=== PATIENT | male | born 1955 | race Caucasian/White ===

== ENCOUNTER 2020-01-12 01:28 | Inpatient (IN) | payer MEDICARE, OTHER ==
[~2020-01-12] VITALS: Ht 185.4 cm; Wt 108.0 kg
[2020-01-12] MEDS ORDERED: ONDANSETRON 2MG/ML, 2ML IVPush ONE (02:00)
[2020-01-12] MEDS ORDERED: SODIUM CHLORIDE FLUSH 10ML SYR IVF ONE (02:00)
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
[2020-01-12] MEDS ORDERED: ONDANSETRON 2MG/ML, 2ML ONE ×4 (02:06→16:04)
[2020-01-12] MEDS ORDERED: MORPHINE SULFATE 4 MG/ML, 1ML ONE ×6 (02:06→14:27)
--- NOTE | 2020-01-12 02:11 | NUR ---
PT TO IMAGING.
[2020-01-12] MEDS: MORPHINE SULFATE 4 MG/ML, 1ML IVPush PRN ×5 (02:31→14:41)
--- NOTE | 2020-01-12 03:13 | NUR ---
PT LAYING IN BED, CONNECTED TO BP AND O2 MONITORS. MEDICATED PER MAY, CALL LIGHT IN REACH AND LAW ENFORCEMENT IN ROOM.
[2020-01-12 03:25] LABS: ANION GAP 14 mmol/L (5-15); CALCIUM 9.3 mg/dL (8.5-10.1); CHLORIDE 110 mmol/L (98-107)
[2020-01-12 03:26] LABS: CREATININE 1.35 mg/dL (0.7-1.3)
[2020-01-12 03:28] LABS: BASOPHILS % (AUTO) 1 % (0-1); EOSINOPHILS % (AUTO) 0 % (1-7); LYMPHOCYTES % (AUTO) 9 % (22-44); MEAN CORPUSCULAR HEMOGLOBIN 31.6 pg (27.5-34.5); MEAN CORPUSCULAR HGB CONC 32.9 g/dL (33.2-36.2); MEAN PLATELET VOLUME 8.4 fL (7.4-10.4); MONOCYTES % (AUTO) 8 % (2-9); NEUTROPHILS % (AUTO) 81 % (42-75); PLATELET COUNT 227 x10^3/uL (130-400); RED BLOOD COUNT 5.38 x10^6/uL (4.38-5.82); RED CELL DISTRIBUTION WIDTH 15.2 % (9.4-14.8)
[2020-01-12] MEDS ORDERED: ONDANSETRON 2MG/ML, 2ML IVPush PRN ×2 (03:30→16:00)
[2020-01-12] MEDS ORDERED: SODIUM CHLORIDE 0.9% 1,000 ML IV SCH (03:30)
--- NOTE | 2020-01-12 03:40 | NUR ---
PT'S WOUNDS DRESSED WITH ADAPTIC.
[2020-01-12] MEDS ORDERED: HEPARIN 5,000 UNITS/ML, 1ML ONE (03:59)
[2020-01-12] MEDS: HEPARIN 5,000 UNITS/ML, 1ML SQ SCH ×3 (04:07→20:05)
[2020-01-12 04:12] LABS: MD SCAN
[2020-01-12] MEDS ORDERED: HYDROcodone/APAP 5/325 TABLET ONE (04:33)
[2020-01-12] MEDS: HYDROcodone/APAP 5/325 TABLET PO PRN ×2 (04:35→22:07)
[2020-01-12 04:37] LABS: CHOL/HDL RATIO 3.8
--- NOTE | 2020-01-12 04:39 | NUR ---
pt continuously asking for water and ice chips, reeducated about npo status, communicated understanding. pt medicated to mar for pain, nadn when pt watching tv. call light in reach.
[2020-01-12] MEDS: morphine SULFATE 10 MG/ML, 1ML IVPush PRN ×2 (04:51→20:06)
[2020-01-12] MEDS: ONDANSETRON 2MG/ML, 2ML IVPush PRN ×2 (04:51→10:35)
--- NOTE | 2020-01-12 04:57 | NUR ---
PT MEDICATED WITH MORPHINE FOR TRANSFER FROM [facility] TO HOSPITAL BED. PT REMAINS AWAKE AND GRIMICING IN PAIN. PT WORKING ON TAKING DEEP BREATHS FOR PAIN CONTROL.
--- NOTE | 2020-01-12 04:58 | NUR ---
REPORT RECIEVED FROM LIZ OTT. THIS RN TO ASSUME CARE OF PT. PT MOVED TO HOSPITAL BED, AND IS COMFORTABLE AT THE MOMENT, PT REQUESTS WATER BUT EDUCATED ON NPO STATUS, PT AGREEABLE AT THIS TIME. PT ON CONTINUOUS PULSE OX AND BP CUFF. DEPUTIES AT BEDSIDE
--- NOTE | 2020-01-12 05:35 | NUR ---
PT PROVIDED WITH EXTRA PILLOW TO HELP WITH PAIN ON INJURED LEG. PT STATING PAIN RELIEF
[2020-01-12] MEDS ORDERED: ACETAMINOPHEN 325 MG TABLET ONE ×2 (06:18→17:10)
[2020-01-12] MEDS: ACETAMINOPHEN 325 MG TABLET PO PRN (06:23)
--- NOTE | 2020-01-12 06:25 | NUR ---
PT STATING STILL IN PAIN, MEDICATED PER EMAR AND PROVIDED ICE PACK
--- NOTE | 2020-01-12 07:30 | NUR ---
REPORT TO RECIEVING RN
--- NOTE | 2020-01-12 10:00 | NUR ---
REPORT RC'VD FROM KELSEY HILL AND CARE OF PT ASSUMED.
[2020-01-12] MEDS: NICOTINE 14MG/24 HR PATCH.TD24 TD SCH (10:33)
--- NOTE | 2020-01-12 10:44 | NUR ---
PT MEDICATED FOR 10/10 L HIP PAIN AND NAUSEA/DRY HEAVING. IVF INFUSING. STILL NO SURGICAL BED AVAILABLE UPSTAIRS AND NO TIME SCHEDULED FOR SURGERY. CMS INTACT TO LLE. PT REPOSITIONED TOLERATED. OFFICERS AT BS AT ALL TIMES.
--- NOTE | 2020-01-12 11:46 | NUR ---
PT VERBALIZES SOME PAIN RELIEF AND RELIEF OF NAUSEA/DRY HEAVING AFTER MORPHINE. FRESH LARGE ICE PACK PROVIDED FOR L HIP. PT FREQUENTLY REQUESTING WATER OR ICE CHIPS BUT UNDERSTANDS NPO STATUS D/T SURGERY. URINE VERY DARK, ONLY ~200ML SINCE THIS MORNING. IVF STILL INFUSING AT 100ML/HR. CALLED HOSPITALIST DR. NOONAN TO NOTIFY HIM OF PT STATUS, HE STATES HE WILL COME SEE PT BUT NO CHANGES TO ORDERS.
[2020-01-12] MEDS ORDERED: D5%-0.45NACL+KCL 20MEQ 1,000 ML IV ONE (13:30)
--- NOTE | 2020-01-12 13:37 | NUR ---
HOSPITALIST WAS IN TO SEE PT. NEW ORDER RC'VD TO CHANGE MIVF.
--- NOTE | 2020-01-12 14:18 | NUR ---
REPORTED TO JAVIER HILL IN PRE-OP.
[2020-01-12] MEDS ORDERED: MIDAZOLAM 1 MG/ML, 2ML ONE (14:58)
[2020-01-12] MEDS ORDERED: FENTANYL PF 250 MCG/5ML ONE ×2 (14:58→15:46)
[2020-01-12] MEDS ORDERED: CHLORHEXIDINE 15 ML UDC MM ONE (15:00)
--- NOTE | 2020-01-12 15:01 | NUR ---
PT MEDICATED WITH ANOTHER DOSE OF MORPHINE FOR L HIP PAIN. NEW ICE PACK PROVIDED. TAKEN TO OR VIA [place].
[2020-01-12] MEDS ORDERED: PHENYLEPHRINE 10 MG/ML ONE (15:21)
[2020-01-12 15:26] LABS: CHLORIDE,URINE RANDOM 61 mmol/L; POTASSIUM,URINE RANDOM 120 mmol/L; SODIUM,URINE RANDOM 37 mmol/L
[2020-01-12] MEDS ORDERED: PROMETHAZINE 25 MG SUPP PR PRN (16:00)
[2020-01-12] MEDS ORDERED: LORazepam 2 MG/ML, 1ML IVPush PRN (16:00)
[2020-01-12] MEDS ORDERED: PROMETHAZINE 25 MG/ML, 1ML IVPush PRN (16:00)
[2020-01-12] MEDS ORDERED: hydrALAzine 20 MG/ML, 1ML IV PRN (16:00)
[2020-01-12] MEDS ORDERED: LABETALOL 5MG/ML, 20ML IV PRN (16:00)
[2020-01-12] MEDS ORDERED: PROMETHAZINE 12.5 MG SUPP PR PRN (16:00)
[2020-01-12] MEDS ORDERED: ACETAMINOPHEN 325 MG TABLET PO PRN (16:00)
[2020-01-12] MEDS ORDERED: HYDROmorphone 1 MG/ML, 1ML INJ IVPush PRN (16:00)
[2020-01-12] MEDS ORDERED: OXYcodone 5 MG/5 ML ORAL.SOL UDC PO PRN (16:00)
[2020-01-12] MEDS ORDERED: GLYCOPYRROLATE 0.2MG/1ML, 5ML ONE (16:04)
[2020-01-12] MEDS ORDERED: ROCURONIUM 10MG/ML,5ML ONE (16:04)
[2020-01-12] MEDS ORDERED: PROPOFOL 10 MG/ML, 20ML ONE (16:04)
[2020-01-12] MEDS ORDERED: CEFAZOLIN 1,000 MG ONE (16:04)
[2020-01-12] MEDS ORDERED: SUCCINYLCHOLINE 20 MG/ML, 10ML ONE (16:04)
[2020-01-12] MEDS ORDERED: DEXAMETHASONE 4 MG/ML, 1ML ONE (16:04)
[2020-01-12] MEDS ORDERED: NEOSTIGMINE 1 MG/ML, 10ML ONE (16:04)
[2020-01-12] MEDS ORDERED: EPHEDRINE 50 MG/ML, 1ML ONE (16:08)
[2020-01-12] MEDS ORDERED: METHOCARBAMOL 1,000 MG in DEXTROSE 5% 100 ML IV ONE (17:00)
[2020-01-12] MEDS: ENALAPRILAT 1.25 MG/ML, 1ML IV PRN (17:00)
[2020-01-12] MEDS ORDERED: ENALAPRILAT 1.25 MG/ML, 2ML ONE (17:03)
[2020-01-12] MEDS ORDERED: FENTANYL PF 100 MCG/2ML ONE (17:09)
[2020-01-12] MEDS ORDERED: ACETAMINOPHEN 650 MG/20.3 ML UDC ONE (17:09)
[2020-01-12] MEDS ORDERED: OXYcodone 5 MG/5 ML ORAL.SOL UDC ONE (17:09)
[2020-01-12] MEDS: FENTANYL PF 100 MCG/2ML IV PRN ×2 (17:15→17:23)
[2020-01-12] MEDS ORDERED: LORazepam 2 MG/ML, 1ML ONE (17:30)
[2020-01-12 18:45] VITALS: BP 107/75
[2020-01-12] MEDS: METHOCARBAMOL 750 MG TABLET PO PRN (23:41)
[2020-01-12] MEDS: CEFAZOLIN PMX 2GM/50ML 50 ML IVPB SCH (23:46)
[2020-01-13 00:39] VITALS: BP 139/87
[2020-01-13] MEDS: morphine SULFATE 10 MG/ML, 1ML IVPush PRN ×4 (00:41→22:42)
[2020-01-13] MEDS: HYDROcodone/APAP 5/325 TABLET PO PRN ×4 (02:05→22:05)
[2020-01-13] MEDS: HEPARIN 5,000 UNITS/ML, 1ML SQ SCH ×3 (04:14→20:52)
[2020-01-13 05:48] VITALS: BP 147/94
[2020-01-13] MEDS: METHOCARBAMOL 750 MG TABLET PO PRN ×2 (06:18→17:49)
[2020-01-13 07:06] VITALS: BP 139/94
[2020-01-13] MEDS: CEFAZOLIN PMX 2GM/50ML 50 ML IVPB SCH (09:08)
[2020-01-13] MEDS: NICOTINE 14MG/24 HR PATCH.TD24 TD SCH (09:10)
[2020-01-13 12:11] VITALS: BP 151/96
[2020-01-13 18:46] VITALS: BP 138/92
[2020-01-13] MEDS: METOPROLOL SUCCINATE 25 MG TAB.ER.24H PO SCH (20:52)
[2020-01-14 00:23] VITALS: BP 148/82
[2020-01-14] MEDS: METHOCARBAMOL 750 MG TABLET PO PRN ×3 (00:35→21:51)
[2020-01-14] MEDS: HEPARIN 5,000 UNITS/ML, 1ML SQ SCH ×3 (04:30→20:33)
[2020-01-14] MEDS: HYDROcodone/APAP 5/325 TABLET PO PRN ×3 (04:30→20:34)
[2020-01-14 05:00] LABS: BASOPHILS % (AUTO) 0 % (0-1); EOSINOPHILS % (AUTO) 1 % (1-7); LYMPHOCYTES % (AUTO) 25 % (22-44); MEAN CORPUSCULAR HEMOGLOBIN 31.7 pg (27.5-34.5); MEAN CORPUSCULAR HGB CONC 33.6 g/dL (33.2-36.2); MEAN PLATELET VOLUME 8.7 fL (7.4-10.4); MONOCYTES % (AUTO) 21 % (2-9); NEUTROPHILS % (AUTO) 54 % (42-75); PLATELET COUNT 192 x10^3/uL (130-400); RED BLOOD COUNT 3.78 x10^6/uL (4.38-5.82); RED CELL DISTRIBUTION WIDTH 15.2 % (9.4-14.8)
[2020-01-14 05:05] LABS: ALBUMIN 3.1 g/dL (3.4-5.0); ANION GAP 5 mmol/L (5-15); CALCIUM 8.8 mg/dL (8.5-10.1); CHLORIDE 102 mmol/L (98-107); CREATININE 0.85 mg/dL (0.7-1.3)
[2020-01-14 05:49] LABS: MD SCAN
[2020-01-14] MEDS: morphine SULFATE 10 MG/ML, 1ML IVPush PRN (06:15)
[2020-01-14 08:09] VITALS: BP 141/92
[2020-01-14] MEDS: NICOTINE 14MG/24 HR PATCH.TD24 TD SCH (08:14)
[2020-01-14] MEDS: METOPROLOL SUCCINATE 25 MG TAB.ER.24H PO SCH ×2 (08:14→20:34)
[2020-01-14] MEDS ORDERED: POTASSIUM PHOSPHATE 44 MEQ in SODIUM CHLORIDE 0.9% 500 ML IV ONE (09:00)
[2020-01-14 12:59] VITALS: BP 142/92
[2020-01-14 13:24] LABS: BASOPHILS % (AUTO) 0 % (0-1); EOSINOPHILS % (AUTO) 0 % (1-7); LYMPHOCYTES % (AUTO) 19 % (22-44); MEAN CORPUSCULAR HEMOGLOBIN 31.6 pg (27.5-34.5); MEAN CORPUSCULAR HGB CONC 33.3 g/dL (33.2-36.2); MEAN PLATELET VOLUME 8.2 fL (7.4-10.4); MONOCYTES % (AUTO) 19 % (2-9); NEUTROPHILS % (AUTO) 63 % (42-75); PLATELET COUNT 200 x10^3/uL (130-400); RED BLOOD COUNT 3.61 x10^6/uL (4.38-5.82)
[2020-01-14 13:25] LABS: MD NO
[2020-01-14 20:38] VITALS: BP 129/90
[2020-01-15] MEDS: HYDROcodone/APAP 5/325 TABLET PO PRN ×5 (01:47→20:53)
[2020-01-15 01:52] VITALS: BP 149/92
[2020-01-15] MEDS: METHOCARBAMOL 750 MG TABLET PO PRN ×3 (03:57→12:57)
[2020-01-15] MEDS: HEPARIN 5,000 UNITS/ML, 1ML SQ SCH ×3 (03:57→20:53)
[2020-01-15 05:42] LABS: BASOPHILS % (AUTO) 0 % (0-1); EOSINOPHILS % (AUTO) 1 % (1-7); LYMPHOCYTES % (AUTO) 25 % (22-44); MEAN CORPUSCULAR HEMOGLOBIN 31.9 pg (27.5-34.5); MEAN CORPUSCULAR HGB CONC 33.5 g/dL (33.2-36.2); MEAN PLATELET VOLUME 8.7 fL (7.4-10.4); MONOCYTES % (AUTO) 21 % (2-9); NEUTROPHILS % (AUTO) 53 % (42-75); PLATELET COUNT 239 x10^3/uL (130-400); RED BLOOD COUNT 3.35 x10^6/uL (4.38-5.82); RED CELL DISTRIBUTION WIDTH 15.1 % (9.4-14.8)
[2020-01-15 05:59] LABS: MD NO
[2020-01-15 07:27] VITALS: BP 152/89
[2020-01-15] MEDS: METOPROLOL SUCCINATE 25 MG TAB.ER.24H PO SCH ×2 (08:51→20:53)
[2020-01-15] MEDS: NICOTINE 14MG/24 HR PATCH.TD24 TD SCH (08:53)
[2020-01-15 14:10] VITALS: BP 139/97
[2020-01-15 19:54] VITALS: BP 133/93
[2020-01-16] MEDS: HYDROcodone/APAP 5/325 TABLET PO PRN ×4 (02:06→20:05)
[2020-01-16 02:44] VITALS: BP 190/106
[2020-01-16 03:01] VITALS: BP 156/88
[2020-01-16] MEDS: HEPARIN 5,000 UNITS/ML, 1ML SQ SCH ×3 (04:48→19:55)
[2020-01-16] MEDS: NICOTINE 14MG/24 HR PATCH.TD24 TD SCH (08:41)
[2020-01-16] MEDS: METOPROLOL SUCCINATE 25 MG TAB.ER.24H PO SCH ×2 (08:42→21:17)
[2020-01-16 08:50] VITALS: BP 137/97
[2020-01-16 13:33] VITALS: BP 152/99
[2020-01-16 19:29] VITALS: BP 158/114
[2020-01-16] MEDS: LABETALOL 5MG/ML, 20ML IVPush PRN ×2 (19:55→22:04)
[2020-01-16] MEDS: METHOCARBAMOL 750 MG TABLET PO PRN (20:04)
[2020-01-16] MEDS: DOCUSATE 100 MG CAPSULE PO PRN (20:04)
[2020-01-16] MEDS ORDERED: ENALAPRILAT 1.25 MG/ML, 2ML ONE (22:52)
[2020-01-17] MEDS: HYDROcodone/APAP 5/325 TABLET PO PRN ×4 (01:41→17:52)
[2020-01-17] MEDS: ENALAPRILAT 1.25 MG/ML, 1ML IV PRN (01:49)
[2020-01-17 01:55] VITALS: BP 173/104
[2020-01-17] MEDS: NITROGLYCERIN 0.4 MG BOTTLE (25 TABS) SL PRN ×2 (04:21→09:13)
[2020-01-17 04:26] VITALS: BP 100/67
[2020-01-17] MEDS: HEPARIN 5,000 UNITS/ML, 1ML SQ SCH ×3 (04:47→21:58)
[2020-01-17 04:51] LABS: TROPONIN I < 0.015 ng/mL (0.000-0.045)
[2020-01-17 07:25] VITALS: BP 154/112
[2020-01-17] MEDS ORDERED: ACET325T26 PO (08:42)
[2020-01-17] MEDS ORDERED: IBUP-653 PO (08:42)
[2020-01-17] MEDS: NICOTINE 14MG/24 HR PATCH.TD24 TD SCH (09:00)
[2020-01-17] MEDS: METOPROLOL SUCCINATE 25 MG TAB.ER.24H PO SCH ×2 (09:10→21:58)
[2020-01-17] MEDS: DOCUSATE 100 MG CAPSULE PO PRN (09:11)
[2020-01-17] MEDS ORDERED: METO25TA91 PO (10:44)
[2020-01-17] MEDS ORDERED: MAGNESIUM HYDROXIDE 8%, 30ML UDC PO PRN (11:30)
[2020-01-17 12:30] VITALS: BP 153/101
[2020-01-17] MEDS: METHOCARBAMOL 750 MG TABLET PO PRN ×2 (12:49→17:52)
[2020-01-17 19:43] VITALS: BP 155/97
[2020-01-18] MEDS: METHOCARBAMOL 750 MG TABLET PO PRN ×3 (02:56→23:10)
[2020-01-18] MEDS: HYDROcodone/APAP 5/325 TABLET PO PRN ×5 (02:56→21:42)
[2020-01-18 02:59] VITALS: BP 166/86
[2020-01-18] MEDS: HEPARIN 5,000 UNITS/ML, 1ML SQ SCH ×3 (06:30→21:42)
[2020-01-18 07:35] VITALS: BP 151/102
[2020-01-18] MEDS: NICOTINE 14MG/24 HR PATCH.TD24 TD SCH (08:23)
[2020-01-18] MEDS: METOPROLOL SUCCINATE 25 MG TAB.ER.24H PO SCH ×2 (08:23→21:42)
[2020-01-18 13:10] VITALS: BP 123/85
[2020-01-18 19:55] VITALS: BP 156/100
[2020-01-19 02:15] VITALS: BP 148/101
[2020-01-19] MEDS: LABETALOL 5MG/ML, 20ML IVPush PRN (02:25)
[2020-01-19] MEDS: HYDROcodone/APAP 5/325 TABLET PO PRN ×3 (02:26→13:04)
[2020-01-19 03:57] VITALS: BP 125/82
[2020-01-19] MEDS: METHOCARBAMOL 750 MG TABLET PO PRN ×2 (05:03→19:54)
[2020-01-19] MEDS: HEPARIN 5,000 UNITS/ML, 1ML SQ SCH ×3 (05:03→19:54)
[2020-01-19 08:00] VITALS: BP 154/94
[2020-01-19] MEDS: METOPROLOL SUCCINATE 25 MG TAB.ER.24H PO SCH ×2 (08:49→19:55)
[2020-01-19] MEDS: NICOTINE 14MG/24 HR PATCH.TD24 TD SCH (08:49)
[2020-01-19 12:46] VITALS: BP 150/95
[2020-01-19] MEDS: OXYcodone IR 5MG TABLET PO PRN ×2 (18:06→22:14)
[2020-01-19 20:24] VITALS: BP 154/85
[2020-01-20 01:48] VITALS: BP 156/92
[2020-01-20] MEDS: OXYcodone IR 5MG TABLET PO PRN ×4 (02:55→21:14)
[2020-01-20] MEDS: HEPARIN 5,000 UNITS/ML, 1ML SQ SCH ×3 (05:09→21:12)
[2020-01-20] MEDS: METHOCARBAMOL 750 MG TABLET PO PRN ×3 (05:09→21:12)
[2020-01-20 05:28] LABS: BASOPHILS % (AUTO) 0 % (0-1); EOSINOPHILS % (AUTO) 3 % (1-7); LYMPHOCYTES % (AUTO) 26 % (22-44); MEAN CORPUSCULAR HEMOGLOBIN 31.7 pg (27.5-34.5); MEAN CORPUSCULAR HGB CONC 33.6 g/dL (33.2-36.2); MEAN PLATELET VOLUME 7.3 fL (7.4-10.4); MONOCYTES % (AUTO) 14 % (2-9); NEUTROPHILS % (AUTO) 57 % (42-75); PLATELET COUNT 595 x10^3/uL (130-400); RED BLOOD COUNT 3.83 x10^6/uL (4.38-5.82); RED CELL DISTRIBUTION WIDTH 16.1 % (9.4-14.8)
[2020-01-20 05:31] LABS: ANION GAP 3 mmol/L (5-15); CALCIUM 9.4 mg/dL (8.5-10.1); CHLORIDE 104 mmol/L (98-107); CREATININE 0.94 mg/dL (0.7-1.3)
[2020-01-20 06:01] LABS: MD NO
[2020-01-20 08:10] VITALS: BP 153/99
[2020-01-20] MEDS: NICOTINE 14MG/24 HR PATCH.TD24 TD SCH (08:12)
[2020-01-20] MEDS: METOPROLOL SUCCINATE 25 MG TAB.ER.24H PO SCH ×2 (08:12→21:12)
--- NOTE | 2020-01-20 12:00 | NUR ---
NURSING ACTIVITY SHEET 1. GET UP TO THE CHAIR 3X'S A DAY FOR ALL MEALS 2. REFRAIN FROM USING COMMODE AT BEDSIDE. AMBULATE TO THE RESTROOM WITH NURSING. 3. B LE STRENGTHENING EXERCISES PER HANDOUTS 3-5X'S A DAY. REVIEWED ACTIVITY SHEET WITH PATIENT, OFFICERS AND RN. INSTRUCTED PATIENT TO HAVE STAFF CHECK OFF DAILY ACTIVITIES Addendum: 01/20/20 at 1520 by DENISE BOUDREAUX PTA Amended: Links added.
[2020-01-20 14:00] VITALS: BP 128/73
[2020-01-20 19:10] VITALS: BP 138/91
[2020-01-21 00:37] VITALS: BP 131/89
[2020-01-21] MEDS: OXYcodone IR 5MG TABLET PO PRN ×4 (04:39→21:30)
[2020-01-21] MEDS: HEPARIN 5,000 UNITS/ML, 1ML SQ SCH ×3 (04:39→21:29)
[2020-01-21] MEDS: METHOCARBAMOL 750 MG TABLET PO PRN ×3 (04:39→21:30)
[2020-01-21 06:42] VITALS: BP 153/95
[2020-01-21] MEDS: METOPROLOL SUCCINATE 25 MG TAB.ER.24H PO SCH (08:53)
[2020-01-21] MEDS: NICOTINE 14MG/24 HR PATCH.TD24 TD SCH (08:54)
[2020-01-21 12:52] VITALS: BP 122/80
[2020-01-21] MEDS: ACETAMINOPHEN 325 MG TABLET PO PRN (17:21)
[2020-01-21] MEDS: DOCUSATE 100 MG CAPSULE PO PRN (18:21)
[2020-01-21] MEDS ORDERED: METOPROLOL SUCCINATE 25 MG TAB.ER.24H PO SCH (21:00)
[2020-01-21 21:18] VITALS: BP 152/95
[2020-01-22 01:37] VITALS: BP 149/94
[2020-01-22] MEDS: HEPARIN 5,000 UNITS/ML, 1ML SQ SCH ×3 (04:05→21:43)
[2020-01-22] MEDS: METHOCARBAMOL 750 MG TABLET PO PRN ×3 (04:05→21:43)
[2020-01-22] MEDS: OXYcodone IR 5MG TABLET PO PRN ×4 (04:05→21:43)
[2020-01-22] MEDS: METOPROLOL SUCCINATE 100 MG TAB.ER.24H PO SCH (06:36)
[2020-01-22 07:04] VITALS: BP 149/98
[2020-01-22] MEDS: NICOTINE 14MG/24 HR PATCH.TD24 TD SCH (08:14)
[2020-01-22 13:16] VITALS: BP 128/80
[2020-01-22] MEDS: ACETAMINOPHEN 325 MG TABLET PO PRN (14:26)
[2020-01-22 18:57] VITALS: BP 134/79
[2020-01-23 00:55] VITALS: BP 143/87
[2020-01-23] MEDS: HEPARIN 5,000 UNITS/ML, 1ML SQ SCH ×3 (06:13→20:25)
[2020-01-23] MEDS: METOPROLOL SUCCINATE 100 MG TAB.ER.24H PO SCH (06:13)
[2020-01-23] MEDS: METHOCARBAMOL 750 MG TABLET PO PRN (06:13)
[2020-01-23] MEDS: OXYcodone IR 5MG TABLET PO PRN ×2 (06:13→11:46)
[2020-01-23 07:43] VITALS: BP 149/95
[2020-01-23] MEDS: NICOTINE 14MG/24 HR PATCH.TD24 TD SCH (09:43)
[2020-01-23 12:38] VITALS: BP 145/93
[2020-01-23] MEDS: APAP/CODEINE 300/30MG TABLET PO PRN ×2 (16:29→22:42)
[2020-01-23 19:20] VITALS: BP 119/81
[2020-01-24 02:30] VITALS: BP 143/93
[2020-01-24] MEDS: HEPARIN 5,000 UNITS/ML, 1ML SQ SCH ×2 (04:47→13:04)
[2020-01-24] MEDS: APAP/CODEINE 300/30MG TABLET PO PRN ×2 (04:51→10:47)
[2020-01-24] MEDS: METOPROLOL SUCCINATE 100 MG TAB.ER.24H PO SCH (05:20)
[2020-01-24 07:15] VITALS: BP 125/86
[2020-01-24] MEDS: NICOTINE 14MG/24 HR PATCH.TD24 TD SCH (08:38)
[2020-01-24] MEDS ORDERED: NICO-486 TD (13:13)
[2020-01-24] MEDS ORDERED: GABA300C PO (13:13)
[2020-01-24] MEDS ORDERED: ACET1TAB64 PO (13:13)
[2020-01-24] MEDS ORDERED: METO-95 PO (13:13)
[2020-01-24] MEDS ORDERED: DOCU100C33 PO (13:13)
[2020-01-24] MEDS ORDERED: ONDA4TAB7 PO (13:13)
[2020-01-24] MEDS ORDERED: ENOX40SY4 SQ (13:15)
[2020-01-24] MEDS ORDERED: APAP/CODEINE 300/30MG TABLET PO PRN (13:30)
[2020-01-24 14:25] VITALS: BP 127/85
== END 2020-01-24 17:15 | disposition home or self-care (01) | DRG 481 ==
LOC: ED 02:38 → EDIP 03:23 → 4NE 18:08
PROVIDERS: ADMIT Family Medicine; ATTEND Internal Medicine
PROC: 0QS736Z Reposition Left Upper Femur with Intramedullary Internal Fixation Device, Percutaneous Approach (ICD-10-PCS; principal; 2020-01-13)
DX: S72.142A Displaced intertrochanteric fracture of left femur, initial encounter for closed fracture (principal); N17.9 Acute kidney failure, unspecified; I10 Essential (primary) hypertension; I25.10 Atherosclerotic heart disease of native coronary artery without angina pectoris; F41.9 Anxiety disorder, unspecified; F17.200 Nicotine dependence, unspecified, uncomplicated; D72.829 Elevated white blood cell count, unspecified; Z20.828 Contact with and (suspected) exposure to other viral communicable diseases; J44.9 Chronic obstructive pulmonary disease, unspecified; W18.39XA Other fall on same level, initial encounter; Z95.5 Presence of coronary angioplasty implant and graft; Z88.5 Allergy status to narcotic agent; Z91.14 Patient's other noncompliance with medication regimen; Z76.5 Malingerer [conscious simulation]; Z86.73 Personal history of transient ischemic attack (TIA), and cerebral infarction without residual deficits; Z90.89 Acquired absence of other organs; Y93.89 Activity, other specified; Y92.89 Other specified places as the place of occurrence of the external cause; Y99.8 Other external cause status; Z88.8 Allergy status to other drugs, medicaments and biological substances
CPT/HCPCS: 36415; 76000; 80048; 80061; 80069; 82436; 83735; 84100; 84133; 84300; 84484; 85025; 87635; 93005; 96374; 96375; 99285; C1713; G0378; J0690; J1100; J1644; J2250; J2405; J2704; J2710; J3010; J0330; J2060; J2270; J2370; J2800; J3480; J7030; J7040